=== PATIENT | male | born 1990 | race Two or more races ===

== ENCOUNTER 2017-07-04 21:37 | Emergency (ER) | payer MEDICAID, OTHER ==
[~2017-07-04] VITALS: Ht 180.3 cm; Wt 86.2 kg
[2017-07-04 21:55] VITALS: BP 151/91
== END 2017-07-04 22:35 | disposition left against medical advice (07) ==
LOC: ER 21:43
DX: M25.562 Pain in left knee (principal); M25.561 Pain in right knee; Z53.21 Procedure and treatment not carried out due to patient leaving prior to being seen by health care provider

== ENCOUNTER 2017-10-25 13:48 | Emergency (ER) | payer MEDICAID ==
[~2017-10-25] VITALS: Ht 180.3 cm; Wt 86.2 kg
[2017-10-25 13:54] VITALS: BP 130/75
== END 2017-10-25 20:17 | disposition left against medical advice (07) ==
LOC: ER 13:48
DX: M79.605 Pain in left leg (principal); Z53.21 Procedure and treatment not carried out due to patient leaving prior to being seen by health care provider

== ENCOUNTER 2018-10-28 05:53 | Inpatient (IN) | payer MEDICAID | END 2018-10-30 11:35 | disposition home or self-care (01) | LOC: ER 05:53 → TELE 09:06 → CENTRAL 14:05 | DX: N13.2 Hydronephrosis with renal and ureteral calculous obstruction (principal); I10 Essential (primary) hypertension; N39.0 Urinary tract infection, site not specified; R73.9 Hyperglycemia, unspecified; K40.20 Bilateral inguinal hernia, without obstruction or gangrene, not specified as recurrent; R10.12 Left upper quadrant pain ==